=== PATIENT | female | born 1955 | race Hispanic/Latino ===

== ENCOUNTER 2023-03-19 07:46 | Day surgery (SDC) | payer OTHER ==
[2023-03-17 11:13] VITALS: BMI 24.1
[2023-03-19] MEDS ORDERED: fentaNYL 50 mcg/mL 1 mL Vial ONE (09:37)
[2023-03-19] MEDS ORDERED: PROPOFOL 20 ML ONE ×2 (09:37)
[2023-03-19] MEDS ORDERED: Lidocaine 1% PF 5 ML VIAL ONE (09:38)
== END 2023-03-19 11:19 | disposition home or self-care (01) ==
LOC: CSHSDC 07:46
PROVIDERS: ATTEND Internal Medicine Gastroenterology
PROC: 0DBN8ZX Excision of Sigmoid Colon, Via Natural or Artificial Opening Endoscopic, Diagnostic (ICD-10-PCS; principal; 2023-03-19)
PROC: 0DJ08ZZ Inspection of Upper Intestinal Tract, Via Natural or Artificial Opening Endoscopic (ICD-10-PCS; principal; 2023-03-19)
DX: Z12.11 Encounter for screening for malignant neoplasm of colon (principal); K74.60 Unspecified cirrhosis of liver; K74.3 Primary biliary cirrhosis; K57.30 Diverticulosis of large intestine without perforation or abscess without bleeding; F41.9 Anxiety disorder, unspecified; M81.0 Age-related osteoporosis without current pathological fracture; Z90.49 Acquired absence of other specified parts of digestive tract; Z79.899 Other long term (current) drug therapy
CPT/HCPCS: 88305; J2704; J3010

== ENCOUNTER 2023-05-19 08:36 | Outpatient (CLI) | payer OTHER | END 2023-05-19 08:37 | disposition home or self-care (01) | LOC: CSHMAMMO 08:36 | PROVIDERS: ATTEND Student in an Organized Health Care Education/Training Program | DX: Z12.31 Encounter for screening mammogram for malignant neoplasm of breast (principal); Z13.820 Encounter for screening for osteoporosis; M81.0 Age-related osteoporosis without current pathological fracture; Z78.0 Asymptomatic menopausal state | CPT/HCPCS: 77063; 77067; 77080 ==

== ENCOUNTER 2023-10-09 07:48 | Outpatient (CLI) | payer OTHER | END 2023-10-09 07:49 | disposition home or self-care (01) | LOC: CSHCT 07:48 | PROVIDERS: ATTEND Student in an Organized Health Care Education/Training Program | DX: Z12.2 Encounter for screening for malignant neoplasm of respiratory organs (principal); Z87.891 Personal history of nicotine dependence | CPT/HCPCS: 71271 ==

== ENCOUNTER 2024-06-16 14:14 | Outpatient (CLI) | payer OTHER | END 2024-06-16 14:15 | disposition home or self-care (01) | LOC: CSHMAMMO 14:14 | PROVIDERS: ATTEND Student in an Organized Health Care Education/Training Program | DX: Z12.31 Encounter for screening mammogram for malignant neoplasm of breast (principal) | CPT/HCPCS: 77063; 77067 ==